=== PATIENT | male | born 1950 | race Caucasian/White ===

== ENCOUNTER 2016-11-05 18:14 | Inpatient (IN) | payer OTHER ==
[~2016-11-05] VITALS: Ht 162.6 cm; Wt 77.8 kg
[~2016-11-05 18:14] MED LIST: NAPROSYN500 MG PO; PERCOCET 5/31 TABLET PO
[2016-11-05 18:59] LABS: HEMATOCRIT 45.3 % (38.0-50.0); MCH 28.1 PG (29.0-34.0); MCHC 32.9 G/DL (30.0-36.0); MCV 85.3 FL (86-99); MEAN PLAT.VOLUME 10.7 uM^3 (9.0-12.4); PLATELET COUNT 214 K/uL (156-360); RBC DIS.WIDTH-CV 12.7 % (11.8-14.6); RBC DIS.WIDTH-SD 39.4 % (39-53); RED BLOOD COUNT 5.31 M/uL (4.00-5.50); WHITE BLOOD COUNT 6.4 K/uL (4.1-10.2)
[2016-11-05 19:16] LABS: CHLORIDE 109 mEq/L (99-109); POTASSIUM 3.8 mEq/L (3.7-5.4); SODIUM 141 mEq/L (136-147)
[2016-11-05 19:18] LABS: GLUCOSE 128 mg/dL (70-99)
[2016-11-05 19:19] LABS: ANION GAP 9 MEQ/L (2-14)
[2016-11-05 19:22] LABS: GFR ESTIMATE (CALCULATED) > 59 mL/min/
[2016-11-05 19:23] LABS: UREA NITROGEN (BUN) 16 mg/dL (9-23)
[2016-11-05 19:30] LABS: TROP-I INTERPRETATION POSITIVE; TROPONIN-I 0.62 ng/mL (0.0-0.30)
[2016-11-05 20:23] LABS: INTER. NORMALIZED RATIO 1.1; PROTHROMBIN TIME 10.7 (9.2-11.2); PTT 30.6 (25-32)
[2016-11-05] MEDS ORDERED: ZOCOR40 MG PO (20:32)
[2016-11-05 21:19] LABS: EOSINOPHIL (%) 0.5 % (0-5); HEMATOCRIT 44.1 % (38.0-50.0); IMMATURE GRANULOCYTE (%) 0.2 % (0.0-0.7); INSTRUMENT ABS NEUTROPHIL CT 6.5 K/uL; LYMPHOCYTE COUNT 1.4 K/uL (1.0-2.8); MCH 27.9 PG (29.0-34.0); MCHC 33.1 G/DL (30.0-36.0); MCV 84.3 FL (86-99); MONOCYTE (%) 6.2 % (3-12); MONOCYTE COUNT 0.5 K/uL (0-0.8); NEUTROPHIL (%) 76.5 % (45-76); NEUTROPHIL COUNT 6.5 K/uL (1.8-6.4); PLATELET COUNT 236 K/uL (156-360); RBC DIS.WIDTH-CV 12.7 % (11.8-14.6); RBC DIS.WIDTH-SD 39.2 % (39-53); RED BLOOD COUNT 5.23 M/uL (4.00-5.50)
[2016-11-05 21:20] LABS: WHITE BLOOD COUNT 8.4 K/uL (4.1-10.2)
[2016-11-05 21:29] LABS: INTER. NORMALIZED RATIO 1.1; PROTHROMBIN TIME 11.7 (9.2-11.2)
[2016-11-05 21:31] LABS: AMYLASE 69 IU/L (1-118)
[2016-11-05 21:36] LABS: SERUM ETHYL ALCOHOL < 10 mg/dL
[2016-11-05 21:39] LABS: LIPASE 146 U/L (1.0-51.0)
[2016-11-05 21:56] LABS: TROP-I INTERPRETATION POSITIVE; TROPONIN-I 0.86 ng/mL (0.0-0.30)
[2016-11-05 22:17] LABS: PTT > 150.0 (25-32)
[2016-11-05 22:45] VITALS: BP 88/57
[2016-11-05 23:00] VITALS: BP 110/67
[2016-11-05 23:11] VITALS: BP 110/67
[2016-11-05 23:15] VITALS: BP 103/73
[2016-11-05 23:30] VITALS: BP 114/75
[2016-11-06] VITALS (19 sets, daily range): BP systolic 79–118; BP diastolic 51–74
[2016-11-06 00:15] LABS: METH RESISTANT S AUREUS PCR NEGATIVE (NEGATIVE)
[2016-11-06 00:25] LABS: PROBE CHECK PASS; SPECIMEN PROCESSING CONTROL PASS
[2016-11-06 05:31] LABS: EOSINOPHIL (%) 1.6 % (0-5); EOSINOPHIL COUNT 0.1 K/uL (0-0.3); HEMATOCRIT 39.7 % (38.0-50.0); IMMATURE GRANULOCYTE (%) 0.1 % (0.0-0.7); INSTRUMENT ABS NEUTROPHIL CT 3.9 K/uL; LYMPHOCYTE COUNT 1.9 K/uL (1.0-2.8); MCH 28.2 PG (29.0-34.0); MCV 85.6 FL (86-99); MEAN PLAT.VOLUME 11.1 uM^3 (9.0-12.4); MONOCYTE (%) 11.2 % (3-12); MONOCYTE COUNT 0.8 K/uL (0-0.8); NEUTROPHIL (%) 58.1 % (45-76); NEUTROPHIL COUNT 3.9 K/uL (1.8-6.4); PLATELET COUNT 193 K/uL (156-360); RBC DIS.WIDTH-CV 13.1 % (11.8-14.6); RED BLOOD COUNT 4.64 M/uL (4.00-5.50); WHITE BLOOD COUNT 6.7 K/uL (4.1-10.2)
[2016-11-06 05:50] LABS: TROP-I INTERPRETATION POSITIVE; TROPONIN-I 6.26 ng/mL (0.0-0.30)
[2016-11-06 05:52] LABS: ANION GAP 5 MEQ/L (2-14); CHLORIDE 108 MEQ/L (99-109); CREATINE KINASE 288 IU/L (1-294); GFR ESTIMATE (CALCULATED) > 59 mL/min/; GLUCOSE 90 mg/dL (70-99); HDL CHOLESTEROL 32 MG/DL (Desirable>=40); LDL CHOLESTEROL 80 mg/dL (Desirable<100); NON-HDL CHOLESTEROL 107 mg/dL (Desirable<160); SAMPLE HEMOLYSIS CHECK 0; SAMPLE ICTERIC CHECK 0; SAMPLE LIPEMIA CHECK 0; SODIUM 138 MEQ/L (136-147); TOTAL CHOLESTEROL 139 mg/dL (Desirable<200); TOTAL CK 288 IU/L (1-294); TRIGLYCERIDES 137 MG/DL (Normal: <150); UREA NITROGEN (BUN) 12 mg/dL (9-23)
[2016-11-06 06:54] LABS: CK-MB 33.1 ng/mL (0.0-4.9)
[2016-11-06 12:38] LABS: TROP-I INTERPRETATION POSITIVE
[2016-11-06 12:58] LABS: CREATINE KINASE 260 IU/L (1-294); TOTAL CK 260 IU/L (1-294)
[2016-11-06 13:21] LABS: CK-MB 29.1 ng/mL (0.0-4.9)
[2016-11-06 22:50] LABS: ANION GAP 5 MEQ/L (2-14); CHLORIDE 106 MEQ/L (99-109); GFR ESTIMATE (CALCULATED) > 59 mL/min/; GLUCOSE 104 mg/dL (70-99); POTASSIUM 4.2 MEQ/L (3.7-5.4); SAMPLE HEMOLYSIS CHECK 0; SAMPLE ICTERIC CHECK 0; SAMPLE LIPEMIA CHECK 0; SODIUM 138 MEQ/L (136-147); UREA NITROGEN (BUN) 13 mg/dL (9-23)
[2016-11-07] VITALS (10 sets, daily range): BP systolic 89–107; BP diastolic 49–67
[2016-11-07 06:29] LABS: ANION GAP 10 MEQ/L (2-14); CHLORIDE 107 MEQ/L (99-109); GFR ESTIMATE (CALCULATED) > 59 mL/min/; GLUCOSE 93 mg/dL (70-99); POTASSIUM 4.5 MEQ/L (3.7-5.4); SAMPLE HEMOLYSIS CHECK 0; SAMPLE ICTERIC CHECK 0; SAMPLE LIPEMIA CHECK 0; SODIUM 140 MEQ/L (136-147); UREA NITROGEN (BUN) 13 mg/dL (9-23)
[2016-11-07] MEDS ORDERED: ASPIR-LOW81 MG PO (11:17)
[2016-11-07] MEDS ORDERED: NITROSTAT0.4 MG SL (11:17)
[2016-11-07] MEDS ORDERED: ATORVASTATIN CA80 MG PO (11:17)
[2016-11-07] MEDS ORDERED: CARVEDILOL3.125 MG PO (11:17)
[2016-11-07] MEDS ORDERED: EFFIENT10 MG PO (11:17)
== END 2016-11-07 16:02 | disposition home or self-care (01) | DRG 247 ==
LOC: EME 18:14 → CATH 21:36 → EME 21:36 → 4WEST 22:35
PROVIDERS: Emergency Medicine; Internal Medicine Cardiovascular Disease
DX: I21.3 ST elevation (STEMI) myocardial infarction of unspecified site (principal); I47.2 Ventricular tachycardia; E78.00 Pure hypercholesterolemia, unspecified; I25.10 Atherosclerotic heart disease of native coronary artery without angina pectoris; E78.5 Hyperlipidemia, unspecified
CPT/HCPCS: 71020; 80048; 80048 91; 80061; 81003; 82150; 82550; 82550 91; 82553; 83690; 83735; 84484; 85025; 85027; 85347; 85610; 85730; 86850; 86900; 86901; 87641; 93005; 93306; C1725; C1750; C1769; C1874; C1887; G0480; J0153; J0461; J1644; J2250; J2270; J2405; J3010; J3246; J7030

== ENCOUNTER 2017-11-16 09:02 | Emergency (ER) | payer OTHER ==
[~2017-11-16] VITALS: Ht 165.1 cm; Wt 73.4 kg
[~2017-11-16 09:02] MED LIST changes: +ASPIR-LOW81 MG PO; +ATORVASTATIN CA80 MG PO; +CARVEDILOL3.125 MG PO; +EFFIENT10 MG PO; +NITROSTAT0.4 MG SL; +ZOCOR40 MG PO
[2017-11-16] MEDS ORDERED: ULTRAM50 MG PO (10:13)
[2017-11-16] MEDS ORDERED: MOTRIN600 MG PO (10:13)
[2017-11-16 10:47] VITALS: BP 99/57
== END 2017-11-16 10:48 | disposition home or self-care (01) ==
LOC: EME 09:02
DX: M25.561 Pain in right knee (principal); E78.5 Hyperlipidemia, unspecified; I25.2 Old myocardial infarction; Z95.5 Presence of coronary angioplasty implant and graft
CPT/HCPCS: 73564; 99281; 99284